=== PATIENT | male | born 1950 | race Caucasian/White ===

== ENCOUNTER → 2019-06-13 | Outpatient (CLI) | payer MEDICARE, BC ==
--- NOTE | 2019-06-13 15:20 | CTL ---
EXAMINATION TYPE: CT Low Dose Lung DATE OF EXAM ORDERED: 06/13/2019 HISTORY: 68-year-old male personal tobacco use. Lung cancer screening CT DLP: 110.[address] CTDI: 2.7 mGy Automated exposure control for dose reduction was used. SCREENING VISIT: Baseline COMPARISON: None TECHNIQUE: Low dose computed tomography scan was performed through the chest. Coronal and sagittal reconstructions performed. CT DIAGNOSTIC QUALITY: Satisfactory FINDINGS: Heart normal size without pericardial effusion. Mild three-vessel coronary artery calcifications are seen. 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 No thoracic lymphadenopathy by CT size criteria. Minimal scattered emphysematous change. No consolidation or pleural effusion. 6 mm anterior right midlung pulmonary nodule located along the minor fissure may represent an intrafissural lymph node, axial image 135. 6 mm subpleural pulmonary nodule peripheral right lower lung, axial image 169. 6 mm peripheral pulmonary nodule, axial image 270. 5 mm basilar pulmonary nodule, axial image 248. 4 mm anterior left basilar pulmonary nodule, axial image 243. 3 mm left lower lobe pulmonary nodule, axial image 185. Visualized upper abdomen shows no gross abnormality. 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 No osseous destructive process. IMPRESSION: 1. Lung RADS 3 - probably benign; scattered 6 mm and smaller pulmonary nodules at baseline. 2. Minimal emphysematous change. RECOMMENDATION: 1. Six-month follow-up low-dose CT chest to reassess the pulmonary nodules. 2. Smoking cessation. FOLLOW UP CT CHEST RECOMMENDATION: [address] LUNG RAD: Lung-Rad 3 Probably Benign MTDD
== END | disposition home or self-care (01) ==
LOC: RADCTMAIN 14:20
PROVIDERS: ATTEND Family Medicine
DX: Z12.2 Encounter for screening for malignant neoplasm of respiratory organs (principal); J43.9 Emphysema, unspecified; Z87.891 Personal history of nicotine dependence